=== PATIENT | female | born 2000 | race Caucasian/White ===

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

== ENCOUNTER → 2020-01-25 13:49 | Outpatient (BNVA) | payer MEDICAID, SELFPAY | PROVIDERS: Family Provider Pediatrics Adolescent Medicine; PCP Pediatrics Adolescent Medicine; Visit Provider Obstetrics & Gynecology | DX: Z87.59 Personal history of other complications of pregnancy, childbirth and the puerperium (principal) | CPT/HCPCS: 84702 ==

== ENCOUNTER → 2020-02-08 08:55 | Outpatient (BNVA) | payer MEDICAID, SELFPAY | PROVIDERS: Family Provider Pediatrics Adolescent Medicine; PCP Pediatrics Adolescent Medicine; Visit Provider Obstetrics & Gynecology | DX: E34.9 Endocrine disorder, unspecified (principal); Z87.59 Personal history of other complications of pregnancy, childbirth and the puerperium | CPT/HCPCS: 84702 ==

== ENCOUNTER → 2020-03-28 16:10 | Outpatient (BNVA) | payer MEDICAID, SELFPAY | PROVIDERS: Family Provider Pediatrics Adolescent Medicine; PCP Pediatrics Adolescent Medicine; Visit Provider Obstetrics & Gynecology | DX: Z87.59 Personal history of other complications of pregnancy, childbirth and the puerperium (principal) | CPT/HCPCS: 84702 ==

== ENCOUNTER → 2020-05-10 16:50 | Outpatient (BNVA) | payer MEDICAID, SELFPAY | PROVIDERS: Family Provider Pediatrics Adolescent Medicine; PCP Pediatrics Adolescent Medicine; Visit Provider Obstetrics & Gynecology | DX: O02.0 Blighted ovum and nonhydatidiform mole (principal) | CPT/HCPCS: 84702 ==

== ENCOUNTER 2024-04-18 07:30 | Inpatient (IN) | payer OTHER, SELFPAY ==
[2024-04-18] VITALS (63 sets, daily range): BP systolic 83–136; BP diastolic 47–84; PULSE 64–110; RESP 15–16; TEMP 35.8–36.9; O2SAT 98–99; BMI 30.5
[2024-04-18 07:35] LABS: Nitrazine Paper, PH Positive
[2024-04-18 07:43] LABS: Basophils % 0.3 %; Eosinophils # 0.2 10^3/uL (0.0-0.8); Eosinophils % 1.7 %; Hematocrit 34.5 % (36-47); Mean Corpuscular HGB Conc 32.5 g/dL (30-55); Mean Corpuscular Hemoglobin 29.2 pg (27-33); Mean Corpuscular Volume 90.1 fl (85-98); Monocytes # 0.9 10^3/uL (0.2-0.9); Monocytes % 10.6 %; Neutrophils # 5.76 10^3/uL (1.8-7.7); Neutrophils % 64.8 %; Nucleated Red Blood Cells % 0 %; Platelet Count 213 10^3/cmm (157-399); Red Blood Count 3.83 10^6/uL (3.85-5.65); Red Cell Distribution Width 13.2 % (12.1-15.1); White Blood Count 8.88 10^3/uL (3.29-11.43)
[2024-04-18] MEDS: miSOPROStol 100 mcg tablet 25 MCG SUBLINGUAL (07:52)
[2024-04-18] MEDS: fentaNYL 50 mcg/mL INJ 2mL IVP (12:00)
[2024-04-18] MEDS: sodium chloride 0.9% 1,000 ML 999 ML IV (12:11)
--- NOTE | 2024-04-18 12:16 | PM.OPHPUD ---
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 She came to the OB department and found that she did indeed have rupture membranes. She had pooling in her vaginal vault. And continuous trickle. Her has been unremarkable. She has had consistent care. Her blood type is a positive. Her antibody screen is negative. She passed her glucose screen. She is rubella immune. She is GBS negative. The remainder of her infectious disease profile is within normal limits. Related Problem List Diagnoses (1) 39 weeks gestation of : I anticipate routine labor augmentation and spontaneous vaginal delivery. (2) Spontaneous rupture of membranes: A&P Assessment and plan (1) 39 weeks gestation of : Status: Acute (2) Spontaneous rupture of membranes: Status: Acute PDMP PDMP Reviewed: Not Reviewed
[2024-04-18] MEDS: dextrose 5%-lactated ringers 1,000 ML 125 ML IV ×2 (13:15→21:15)
[2024-04-18] MEDS: ROPivacaine syringe 100 MG/50 ML SYRINGE 10 MG EPIDURAL ×3 (13:42→22:53)
--- NOTE | 2024-04-18 13:46 | ANES.PAUD2 ---
Pre-Anesthetic Update Pre-Anesthetic Assessment: Date of Surgery/Procedure: 04/18/24 Preop Diagnosis: intruterine Proposed Procedure: labor epidural Any changes to Pre-Anesthetic Assessment?: No Labs Last 48hrs: Short CBC 04/18/24 Range/Units 07:20 WBC 8.88 (3.29-11.43) 10^ 3/uL Hgb 11.20 L (11.27-16.99) g/ dL Hct 34.5 L (36-47) % MCV 90.1 (85-98) fl Plt Count 213 (157-399) 10^3/c mm Neut % (Auto) 64.8 % Neut # (Auto) 5.76 (1.8-7.7) 10^3/u L Blood Bank 04/18/24 07:20 Blood Type A Positive Rho(D) Type Rh positive Antibody Screen Negative Vitals: Temperature 97.2 F L 04/18/24 11:09 Pulse Rate 85 04/18/24 13:42 Respiratory Rate 15 04/18/24 12:00 Blood Pressure 109/60 04/18/24 13:42 Pulse Oximetry 99 04/18/24 13:37 Exam: Pre-Anes Outpt Exam: alert, oriented x 3 and clear to auscultation bilaterally Cardiac Studies: No Data to Display Anesthesia Procedures Epidural: Time Out Performed: Yes Consents Signed: Procedure Consent Consent: requested by attending/covering physician, from patient, risks and benefits reviewed and patient agrees to proceed Lumbar Level: L4-L5 Epidural position: sitting Epidural procedure: sterile prep of area, 1% lidocaine to numb the area, 18 g needle, negative for paresthesia passed, neg for paresthesia, test dose given, 1.5% xylocaine 1:200k epi, 0.2% Ropivacaine bolus ml (5), placed PCEA, no systemic response, sterile dressing applied, L.U.D. no apparent complications and 0.2% Ropiavacaine @ mls/hr (10) Additional Comments: CAMRYN 5cm, catheter easily threaded to 5cm in the space, vs monitored throughout and remained stable. 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
[2024-04-18] MEDS: oxytocin 30 UNIT/500 ML BAG IV (23:10)
[2024-04-19] VITALS (16 sets, daily range): BP systolic 98–118; BP diastolic 57–78; PULSE 71–107; RESP 14–17; TEMP 36.4–36.8; O2SAT 97–98
--- NOTE | 2024-04-19 00:33 | PM.DELIVERY ---
Delivery Note: Date of delivery: April 19, 2024 Pre-delivery diagnoses: 3-year-old 2 para 0-0-1-0 at 39 weeks estimated gestational age presenting with spontaneous rupture membranes Post-delivery diagnoses: Status post vacuum-assisted vaginal delivery Procedure: Vacuum-assisted vaginal delivery Delivering Physician: Feliciano Virk Estimated blood loss (mL): 100 Pre-Delivery Course: The patient presented to the OB department with spontaneous rupture membranes this morning at around 6:00. She is given Cytotec x 2. An epidural was placed. Her labor was also augmented with Pitocin just prior to delivery. She progressed to complete without difficulty. She pushed for over an hour with minimal change in position of the baby. As result she was allowed to labor down. She then pushed again for 45 minutes and the baby made minimal position change during that time. Delivery: DELIVERY: After the baby had made minimal position change despite 45 minutes of pushing, I discussed with the parents the option of using a vacuum. We discussed the risks including the risk of a subgaleal bleed. The vacuum was then placed and used for 2 separate contractions. There was 1 pop-off. She delivered a female with a weight of 6 pounds 14 ounces with Apgars of 8, 9. The baby was delivered from the OP position.The baby was then completely delivered and placed on the mother's abdomen. The cord was then clamped and cut. A nuchal cord was noted which was easily reduced prior to delivery of the shoulder. There was no meconium. The placenta and 3 vessel cord were delivered intact shortly thereafter. The perineum and vaginal vault were carefully examined. A second-degree posterior midline tear was noted that extended up onto the right vaginal wall. It was repaired with a 3-0 Vicryl in the usual fashion. Both the mother and the baby were in stable condition. History History History 2 Term 0 0 Miscarriages/Ectopic 1 Living Children 0 A&P Assessment and plan (1) Vacuum-assisted vaginal delivery: I anticipate routine care. (2) 39 weeks gestation of : PDMP PDMP Reviewed: Not Reviewed Coding Level of Care Code Acute Code for Chg Fwd Diagnoses Vacuum-assisted vaginal delivery Z37.9 39 weeks gestation of Z3A.39
[2024-04-19] MEDS: docusate sodium 100 mg Capsule PO ×2 (08:00→20:25)
[2024-04-19] MEDS: PRENATAL VIT NO.130/IRON/FOLIC 1 EACH TABLET PO (08:00)
[2024-04-19] MEDS: ibuprofen 800 mg tablet PO ×3 (08:00→20:24)
[2024-04-19] MEDS: HYDROcodone-acetaminophen 5-325 mg Tablet PO (13:04)
[2024-04-19 13:22] LABS: Hematocrit 32.5 % (36-47); Mean Corpuscular HGB Conc 32.3 g/dL (30-55); Mean Corpuscular Hemoglobin 29.5 pg (27-33); Mean Corpuscular Volume 91.3 fl (85-98); Mean Platelet Volume 9.1 fL (7.4-10.4); Platelet Count 202 10^3/cmm (157-399); Red Blood Count 3.56 10^6/uL (3.85-5.65); Red Cell Distribution Width 13.2 % (12.1-15.1); White Blood Count 14.73 10^3/uL (3.29-11.43)
--- NOTE | 2024-04-19 16:54 | ANE.PACU2 ---
Inpatient post-anesthesia follow up: Airway intact: Yes Vital signs: Temperature 98.4 F Pulse Rate 99 Respiratory Rate 18 Blood Pressure 112/78 Pulse Oximetry 99 Oxygen Delivery Me thod Room Air Oxygen Flow Rate Fraction of Inspir ed Oxygen Hydration adequate: Yes Nausea and vomiting: No Pain level: 2 Mental status: Baseline Epidural Start/End: Epidural Start Date: 04/18/24 Epidural Start Time: 13:16 Epidural End Date: 04/19/24 Epidural End Time: 00:47
[2024-04-20 04:17] VITALS: BP 101/65; PULSE 73; RESP 16; TEMP 36.6; TEMP 36.7; O2SAT 99
--- OUTSIDE RECORDS SUMMARY | 2024-04-20 07:34 | XMS_ITS | Data Portability ---
Author Organization [place] [facility]i Bailon [facility] Address [address] [address] Assessment No assessment recorded. Plan of Treatment Reminders Order Date Submit Date Provider Last Modified By Organization Details Last Modified Time Details Appointments RETURN OB 2024 09:30A M Feliciano Virk MD Not available Not available Not available Lab streptoco ccus group B, culture, unspecifi ed specimen 2024 [address] [facility], [address] [facility] , [address], [place], [address], 03/30/2024 12:41:22 Referral None recorded. Procedures None recorded. Surgeries None recorded. Imaging None recorded. Medication Orders None recorded. Patient TargetsNo targets recorded. Patient InstructionsNo instructions recorded. Reason for Referral None Reported. Results Created Date Observation Date Name Description Value Unit Range Abnormal Flag Note LastModifiedBy Organization Detail LastModifiedTime 03/26/19 25 03/30/2024 STREP TOCOC CUS, GROUP B CULTU RE streptococcu s, group B culture SEE NOTE STREP TOCOC CUS, GROUP B CULTU RE Micro Numbe r: [id number] Test Statu s: Final Speci men Sourc e: Vagin al/an orect al Speci men Quali ty: Adequ ate Resul t: No group B Strep tococ cus isola cherelle Note per CDC guide lines optim al recov yobany is achie cristine by swabb ing both the lower vagin a and rectu m (thro ugh the anal sphin cter) . Not Available [facility] [address], [place], [address], 03/30/2024 12:41:22 Result Notes None recorded. Problems Name Problem SNOMED Code Status Onset Date Resolution Date Notes Provider Name and Address Organization Details Recorded Time 75068700 Active 2023 KATIE FROST [facility]CR[facility]anda 4 10:20:43 Normal in multigravid a 3938401768248 06 Active 2023 TEN TIMMONS [facility], L.L.CR[facility]anda 4 17:15:25 Normal in multigravid a 2707260552539 06 Active 2023 TEN TIMMONS [facility], L.L.CR[facility]anda 4 17:15:25 Problem Notes None recorded. Procedures Surgical History Date Name Laterality Status Provider Name and Address Organization Details Recorded Time Dilation and Curettage completed [facility] 09/26/2023 10:18:08 tonsilectomy/a denoids completed [facility], L.L.CR[facility]anda 09/26/2023 10:18:19 Imaging Results None recorded. Procedure Notes None recorded. Medical Equipment None Reported. Allergies No known drug allergies Medications Name Sig Start Date Stop Date Status Note LastModified by Organization Details LastModified Time Vitamin 27 mg iron-0.8 mg tablet Take 1 tablet every day by oral route. active Not Available Not Available No t Available Gummies 2024 completed Not Available Not Available Not Available Vitals Date Recorded Body height Body mass index (BMI) Body weight Respiratory rate Heart rate Oxygen saturation Oxygen saturation in Arterial blood by Pulse oximetry Body temperature Systolic blood pressure Diastolic blood pressure Provider Name and Address Organization Details Last Updated DateTime 5 162.56 cm 29.9 kg/m2 31829.1 7 g 18 /min 72 /min 97 % 97 % 97.6 [degF] 116 mm[Hg] 74 mm[Hg] TEN TIMMONS [facility], L.L.CR[facility]anda 5 15:05:28 Date Recorded Body height Body mass index (BMI) Body weight Respiratory rate Oxygen saturation Oxygen saturation in Arterial blood by Pulse oximetry Heart rate Body temperature Systolic blood pressure Diastolic blood pressure Provider Name and Address Organization Details Last Updated DateTime 5 162.56 cm 29.7 kg/m2 52924.8 8 g 16 /min 98 % 98 % 84 /min 97.9 [degF] 128 mm[Hg] 78 mm[Hg] TEN IAIN [facility], LRolandaLMat 5 14:00:25 Date Recorded Body height Body mass index (BMI) Body weight Oxygen saturation Oxygen saturation in Arterial blood by Pulse oximetry Heart rate Respiratory rate Body temperature Systolic blood pressure Diastolic blood pressure Provider Name and Address Organization Details Last Updated DateTime 5 162.56 cm 30.3 kg/m2 26849.6 6 g 99 % 99 % 64 /min 18 /min 97.7 [degF] 100 mm[Hg] 64 mm[Hg] KATIE TAPIA [facility], LRolandaLMat 5 14:53:23 Date Recorded Body height Body mass index (BMI) Body weight Oxygen saturation Oxygen saturation in Arterial blood by Pulse oximetry Heart rate Respiratory rate Body temperature Systolic blood pressure Diastolic blood pressure Provider Name and Address Organization Details Last Updated DateTime 5 162.56 cm 30.7 kg/m2 19347.0 3 g 98 % 98 % 72 /min 18 /min 98.1 [degF] 120 mm[Hg] 68 mm[Hg] KATIE TAPIA [facility], LRolandaLMat 5 13:44:46 Date Recorded Body height Body mass index (BMI) Body weight Oxygen saturation Oxygen saturation in Arterial blood by Pulse oximetry Heart rate Respiratory rate Body temperature Systolic blood pressure Diastolic blood pressure Provider Name and Address Organization Details Last Updated DateTime 5 162.56 cm 30.7 kg/m2 02941.0 3423 g 99 % 99 % 75 /min 18 /min 98.4 [degF] 120 mm[Hg] 78 mm[Hg] KATIE SOUSAMDZander [facility], Jun 5 15:52:21 Social History Question Answer Notes LastModified by Organizat ion Details LastModified Time Tobacco Smoking Status Never Smoker KATIE finch [facility], Jun 09/26/2023 10:17:34 What Is Your Level Of Alcohol Consumption? None Information not available 09/26/2023 Are You Currently Employed? Yes [employer] Information not available 09/26/2023 What Is Your Relationship Status? Information not available 09/26/2023 Are You Sexually Active? Yes Information not available 09/26/2023 Do You Use Any Illicit Or Recreational Drugs? No Information not available 09/26/2023 Sex: Unknown Functional Status Question Answer Note LastModified by Organization D etails LastModified Time Are you able to care for yourself? Yes Information n ot available 09/26/2023 Mental Status None recorded. Family History Relationship Description Onset Age of this Age Resolved Age Notes LastModified by Organization Details LastModified Time Father No current problems or disability [email or web address] Not available 0 09/26/2023 10:17:20 Mother No current problems or disability [email or web address] Not available 0 09/26/2023 10:17:20 Medical History No medical history recorded. Gynecological HistoryNo gynecological history recorded. Obstetrics History GPAL:G 2 P 0 0 0 0 Type Value Living 0 Total 2 Immunizations Vaccine Type Date Status Note Provider Nam e and Address Organization Details Recorded Time IPV 2 completed [facility] 10:15:12 IPV 2 completed [facility] 09/26/2023 10:15:12 IPV 1 completed [facility]/26/2023 10:15:12 MMR 1 completed TREBA NEUSCHWANDER null, [facility] 09/26/2023 10:15:12 MMR 1 completed TREBA NEUSCHWANDER null, [facility] 09/26/2023 10:15:12 Tdap 1 completed TREBA NEUANNETTEWANDER null, [facility] 09/26/2023 10:15:12 Pneumococcal conjugate PCV 13 2 completed TREBA NEUSCHWANDER null, [facility] 09/26/2023 10:15:12 varicella 1 completed TREBA NEUSCHWANDER null, [facility] 09/26/2023 10:15:12 varicella 1 completed [facility] 09/26/2023 10:15:12 Influenza, split virus, trivalent, preservative 2 completed [facility]WAND[facility] 09/26/2023 10:15:12 Influenza, split virus, trivalent, preservative 2 completed TREBA NEUSCHWANDER null, [facility] 09/26/2023 10:15:12 Hep B, adolescent or pediatric 2 completed TREBA NEUSCHWANDER null, [facility] 09/26/2023 10:15:12 Hep B, adolescent or pediatric 2 completed TREBA NEUSCHWANDER null, [facility] 09/26/2023 10:15:12 Hep B, adolescent or pediatric 1 completed TREBA NEUSCHWANDER null, [facility] 09/26/2023 10:15:12 Hep A, adult 1 completed TREBA NEUSCHWANDER null, [facility] 09/26/2023 10:15:12 Hib (PRP-T) 2 completed TREBA NEUSCHWANDER null, [facility] 09/26/2023 10:15:12 Hib (PRP-T) 2 completed TREBA NEUSCHWANDER null, [facility] 09/26/2023 10:15:12 DTaP 2 completed TREBA NEUSCHWANDER null, [facility] 09/26/2023 10:15:12 DTaP 2 completed TREBA NEUSCHWANDER null, [facility] 09/26/2023 10:15:12 Past Encounters Encounter ID Performer Location Encounter Start Date Encounter Closed Date Diagnosis/Indication Diagnosis SNOMED-CT Code Diagnosis ICD10 Code Diagnosis Note [id number] Feliciano Vikr MD [facility] ([facility]) [address] [place], [place] [phone] 09/26/2023 10:09:44 09/26/2023 11:28:26 Multigravida 754563137 Z34.81 Past pregn kevin history of miscarriage 309528885 Z87.59 [id number] EPHRAIM GELLER [facility] ([facility]) [address] [place] [phone] 5 10/10/2023 11:29:09 10/10/2023 17:42:13 [id number] Feliciano Virk MD [facility] ([facility]) [address] [place], [place] [id number] 10/24/2023 09:29:05 10/24/2023 10:40:57 Normal in multigravida 4487579538 17496 Z34.81 Z34.82 Vaginal discharge 090415 006 N89.8 [id number] Feliciano Virk MD [facility] ([facility]) [address] [place] [id number] 11/21/2023 14:49:36 11/21/2023 16:10:00 Normal in multigravida 3027893974 93144 Z34.81 Z34.82 Gestation period, 18 weeks 62466567 Z3A.18 [id number] [facility] ([facility]) [address] [place] [phone] 12/05/2023 13:55:41 12/06/2023 16:38:59 [id number] Feliciano Virk MD [facility] ([facility]) [address] [place] [id number] 5 12/18/2023 15:24:58 12/18/2023 16:34:21 Normal in multigravida 2131301113 81791 Z34.81 Z34.82 Gestation period, 22 weeks 34034466 Z3A.22 [id number] Feliciano Virk MD [facility] ([facility]) [address] [place] [id number] 5 01/16/2024 13:46:01 01/16/2024 14:48:21 Normal in multigravida 9040801744 31680 Z34.81 Z34.82 Gestation period, 26 weeks 19493504 Z3A.[id number] [facility] ([facility]) [address] [place] [id number] 02/13/2024 12:46:01 02/14/2024 11:40:58 [id number] Feliciano Virk MD [facility] ([facility]) [address] [place] [id number] 5 02/13/2024 13:53:48 02/13/2024 14:47:51 Normal in multigravida 0313063691 70279 Z34.83 Gestation period, 30 weeks 29010657 Z3A.30 [id number] Feliciano Virk MD [facility] ([facility]) [address] [place] [id number] 02/27/2024 13:49:16 02/27/2024 15:37:47 Normal in multigravida 6989495638 49850 Z34.83 Gestation period, 32 weeks 6688116 Z3A.32 wants to talk with about TDaP and RSV [id number] Feliciano Virk MD [facility] ([facility]) [address] [place], [place] [phone] 03/12/2024 14:19:43 03/12/2024 17:38:40 Normal in multigravida 9200502184 50756 Z34.83 Gestation period, 34 weeks 12994392 Z3A.34 [id number] Feliciano Virk MD [facility] ([facility]) [address] [place] [address] 5 03/26/2024 13:41:32 03/27/2024 10:16:38 Normal in multigravida 6073902738 23319 Z34.83 Gestation period, 36 weeks 42411019 Z3A.36 [id number] Feliciano Virk MD [facility] ([facility]) [address] [place], [place] [id number] 04/02/2024 14:15:03 04/10/2024 16:57:20 Normal in multigravida 5631340959 58504 Z34.83 Gestation period, 37 weeks 94447122 Z3A.37 [id number] Feliciano Virk MD [facility] ([facility]) [address] [place], [place] [phone] 04/09/2024 13:32:37 04/09/2024 14:22:08 Normal in multigravida 4644565687 67808 Z34.83 Gestation period, 38 weeks 38764059 Z3A.38 [id number] Feliciano Virk MD [facility] ([facility]) [address] [place], [place] [phone] 04/15/2024 15:22:06 04/15/2024 16:53:01 Normal in multigravida 1235400914 01112 Z34.83 Gestation period, 39 weeks 99861995 Z3A.39 Health Concerns Section Related Observation LastModified by Organization Detai ls LastModified Time None Recorded Concern Status LastModified by Organization Details LastModified Time None Recorded Advance Directives Directive None Recorded Payers Encounter Date Sequence Insurance Name Policy Number Policy Henning Covered Member ID Henning Member ID Guarantor Name 03/12/2024 1 [place] [id number] Shantel O Keyana [id number] Shantel Keyana 03/26/2024 1 [place] [id number] Shantel O Keyana [id number] Shantel Keyana 04/02/2024 1 [place] [id number] Shantel O Keyana [id number] Shantel [place] 04/09/2024 1 [place] [id number] Shantel O Keyana [id number] Shantel [place] 04/15/2024 1 [place] [id number] Shantel O Keyana [id number] Shantel Keyana Notes Date Note Type Note Provider Name and Address Organization Details Recorded Time 03/12/2024 text/html ob routineRep orted bypatient.Associated Symptoms:no abdominal pain; no cramping; normal movement; no bleeding; no vaginal discharge; no vaginal/vulvar itching or irritation; no dysuria; no frequency; no hematuria; no fever; no nausea; no emesis; no constipation; no diarrhea/loose stool; no visual changes; no dizziness; no breathlessness;contra ctions(dilshad crain);edema(feet with prolonged standing);headacheNot es:heartburn, vaginal pressure, right hip pain intermittentpt denies any alcohol, drug or tobacco use Feliciano Virk MD [address] [place] [address], [phone], [facility], L[facility]CR[facility]anda 03/12/2024 15:22:48 03/26/2024 text/html ob routineRep orted bypatient.Associated Symptoms:no abdominal pain; normal movement; no bleeding; no vaginal/vulvar itching or irritation; no dysuria; no hematuria; no fever; no emesis; no constipation; no diarrhea/loose stool; no visual changes; no headache; no breathlessness;crampi ng;contractions(braxt on crain);vaginal discharge;frequency;n ausea;edema(feet with prolonged standing);dizzinessNo era:heartburn, vaginal pressure, pelvic pain and pressure, right hip pain intermittentpt denies any alcohol, drug or tobacco use Feliciano Virk MD [address] [place] [address], [phone], [facility] 03/30/2024 06:44:23 04/02/2024 text/html ob routineRep orted bypatient.Associated Symptoms:no abdominal pain; normal movement; no bleeding; no vaginal/vulvar itching or irritation; no dysuria; no frequency; no urgency; no hematuria; no fever; no emesis; no constipation; no diarrhea/loose stool; no edema; no visual changes; no headache; no breathlessness;crampi ng;contractions(braxt on crain);vaginal discharge;nausea;dizz inessNotes:heartburn, vaginal pressure, pelvic pain and pressure, right hip pain intermittent, back painpt denies any alcohol, drug or tobacco use Feliciano Virk MD [address] [place] [address], [phone], [facility] 04/10/2024 12:24:42 04/09/2024 text/html ob routineRep orted bypatient.Associated Symptoms:no abdominal pain; normal movement; no bleeding; no vaginal/vulvar itching or irritation; no dysuria; no frequency; no urgency; no hematuria; no fever; no emesis; no constipation; no diarrhea/loose stool; no edema; no visual changes; no headache; no breathlessness;crampi ng;contractions(braxt on crain);vaginal discharge;nausea;dizz inessNotes:heartburn, vaginal pressure, pelvic pain and pressure, right hip pain intermittent, back painpt denies any alcohol, drug or tobacco use Feliciano Virk MD [address] [place] [address], [phone], [facility], Jun 04/09/2024 14:04:11 04/15/2024 text/html jr ob routineRep orted bypatient.Associated Symptoms:no abdominal pain; no cramping; normal movement; no bleeding; no vaginal discharge; no vaginal/vulvar itching or irritation; no dysuria; no frequency; no urgency; no hematuria; no fever; no nausea; no emesis; no constipation; no edema; no visual changes; no headache; no breathlessness;contra ctions(dilshad crain);diarrhea/loose stool;dizzinessNotes: heartburn, vaginal pressure, pelvic pain and pressure, right hip pain intermittent, back painpt denies any alcohol, drug or tobacco use Feliciano Virk MD [address] [place] [address], [phone], [facility], Jun 04/15/2024 16:09:59 OBGyn Episode Ob Episode Information Episode Created Date Number of Fetuses Patient Bloodtype Patient rh Status Prepregnancy Weight lbs Domestic Partner Domestic Partner Phone Father Name Thermostat Repairer Status 09/26/19 24 1 A Positive Pipe OPEN Fetus Data First Name Last Name Admitted to NICU Weight (g) Sex Living Outcome Pediatric Complications Fetus ID Race Codes Race Delivery Type 5104 Problems Problem Notes Problem Name Start Date End Date Resolution Snomed Code Not e Normal in multigravida 10/23/2023 [id number] Dionna Calculation Initial Dionna Date Initial Exam Date Initial Exam Provider Initial Ultrasound Date Last Menstrual Period Date Ultra Sound Weeks Gestation 04/22/2024 09/26/2023 07/17/2023 0 Eighteen To Twenty Week Dionna Update Ultra Sound Date Fundal Height At Umbil Quickening Date Ultra Sound Latest Weeks Gestation Final Dionna Confirmed By Final Dionna Confirmed Date Final Dionna Date Ultra Sound Latest Days Gestation 0 04/22/19 25 0 Pre- Flowsheet Flowsheet Date 09/26/2023 Kam Score Blood Edema Fundus Height Fundus Units Glucose Ketones Leukocytes Nitrite Labor Signs Protein Cervic Dilation Cervic Effacement Cervic Station Type Weight in lbs Pre/Post Dialysis Refused Weight 149.615726798738 BP Diastolic BP Location Tested BP Systolic BP Type 64 120 sitting Fetus Heart Rate Present A 168 Present Fetus Movement Comments OBI- nausea, cramping, migra kostas Flowsheet Date 10/10/2023 Kam Score Blood Edema Fundus Height Fundus Units Glucose Ketones Leukocytes Nitrite Labor Signs Protein Cervic Dilation Cervic Effacement Cervic Station Type Weight in lbs Pre/Post Dialysis Refused BP Diastolic BP Location Tested BP Systolic BP Type Fetus Heart Rate Present Fetus Movement Comments Flowsheet Date 10/24/2023 Kam Score Blood Edema Fundus Height Fundus Units Glucose Ketones Leukocytes Nitrite Labor Signs Protein Cervic Dilation Cervic Effacement Cervic Station Type Weight in lbs Pre/Post Dialysis Refused 150.892469685264 BP Diastolic BP Location Tested BP Systolic BP Type 64 110 sitting Fetus Heart Rate Present A 150 Present Fetus Movement Comments NOB, nausea/vomiting, headac he, cramping Flowsheet Date 11/21/2023 Kam Score Blood Edema Fundus Height Fundus Units Glucose Ketones Leukocytes Nitrite Labor Signs Protein Cervic Dilation Cervic Effacement Cervic Station neg none none Negative neg Type Weight in lbs Pre/Post Dialysis Refused 153.933408944118 BP Diastolic BP Location Tested BP Systolic BP Type 60 100 Fetus Heart Rate Present A 140 Present Fetus Movement Comments Dizziness, mild cramping Flowsheet Date 12/05/2023 Kam Score Blood Edema Fundus Height Fundus Units Glucose Ketones Leukocytes Nitrite Labor Signs Protein Cervic Dilation Cervic Effacement Cervic Station Type Weight in lbs Pre/Post Dialysis Refused BP Diastolic BP Location Tested BP Systolic BP Type Fetus Heart Rate Present Fetus Movement Comments Flowsheet Date 12/06/2023 Kam Score Blood Edema Fundus Height Fundus Units Glucose Ketones Leukocytes Nitrite Labor Signs Protein Cervic Dilation Cervic Effacement Cervic Station Type Weight in lbs Pre/Post Dialysis Refused BP Diastolic BP Location Tested BP Systolic BP Type Fetus Heart Rate Present Fetus Movement Comments u/s on 12/05/23, DIONNA 04/26/24, EGA 19.4, FHR 136, Breech presentation, Placenta is anterior, anatomic screening survey normal. Flowsheet Date 12/18/2023 Kam Score Blood Edema Fundus Height Fundus Units Glucose Ketones Leukocytes Nitrite Labor Signs Protein Cervic Dilation Cervic Effacement Cervic Station 22 cm none none Negative trace Type Weight in lbs Pre/Post Dialysis Refused 158.065295314278 BP Diastolic BP Location Tested BP Systolic BP Type 60 100 sitting Fetus Heart Rate Present A 156 Present Fetus Movement A Yes Comments cramping, constipation, dizz iness, rash under breast and armpits Flowsheet Date 01/16/2024 Kam Score Blood Edema Fundus Height Fundus Units Glucose Ketones Leukocytes Nitrite Labor Signs Protein Cervic Dilation Cervic Effacement Cervic Station 27 cm none neg Type Weight in lbs Pre/Post Dialysis Refused 164.42700574787 BP Diastolic BP Location Tested BP Systolic BP Type 76 122 Fetus Heart Rate Present A 148 Present Fetus Movement A Yes Comments headache, pelvic pressure in termittent, rash is improved, mild swelling feet with prolonged standing Flowsheet Date 02/13/2024 Kam Score Blood Edema Fundus Height Fundus Units Glucose Ketones Leukocytes Nitrite Labor Signs Protein Cervic Dilation Cervic Effacement Cervic Station Type Weight in lbs Pre/Post Dialysis Refused BP Diastolic BP Location Tested BP Systolic BP Type Fetus Heart Rate Present Fetus Movement Comments Flowsheet Date 02/13/2024 Kam Score Blood Edema Fundus Height Fundus Units Glucose Ketones Leukocytes Nitrite Labor Signs Protein Cervic Dilation Cervic Effacement Cervic Station 30 cm none trace Negative neg Type Weight in lbs Pre/Post Dialysis Refused 170.215253268093 BP Diastolic BP Location Tested BP Systolic BP Type 60 110 sitting Fetus Heart Rate Present A 136 Present Fetus Movement A Yes Comments abdominal pain, low back ronald n, nausea,edema in feet,headache Flowsheet Date 02/27/2024 Kam Score Blood Edema Fundus Height Fundus Units Glucose Ketones Leukocytes Nitrite Labor Signs Protein Cervic Dilation Cervic Effacement Cervic Station none trace neg Type Weight in lbs Pre/Post Dialysis Refused Weight 169.886253224889 BP Diastolic BP Location Tested BP Systolic BP Type 66 126 Fetus Heart Rate Present A 144 Present Fetus Movement A Yes Comments having calf pain and crampin g with working, heartburn, swelling in feet, abd pain and cramps Flowsheet Date 03/12/2024 Kam Score Blood Edema Fundus Height Fundus Units Glucose Ketones Leukocytes Nitrite Labor Signs Protein Cervic Dilation Cervic Effacement Cervic Station 35 cm none trace [place] Crain neg Type Weight in lbs Pre/Post Dialysis Refused Weight 174.092463678538 BP Diastolic BP Location Tested BP Systolic BP Type 74 116 Fetus Heart Rate Present A 136 Present Fetus Movement A Yes Comments Rt. hip pain, swelling in fe et, ctx, vaginal pressure, heartburn Flowsheet Date 03/26/2024 Kam Score Blood Edema Fundus Height Fundus Units Glucose Ketones Leukocytes Nitrite Labor Signs Protein Cervic Dilation Cervic Effacement Cervic Station 36 cm none trace [place] Crain trace 0cm -4 Type Weight in lbs Pre/Post Dialysis Refused Weight 173.667255774961 BP Diastolic BP Location Tested BP Systolic BP Type 78 L arm 128 Fetus Heart Rate Present A 148 Present Fetus Movement A Yes Comments Group B strep Swab collected todayvaginal pressure, pelvic pain/pressure, back pain, nausea, cramps, swelling feet Flowsheet Date 03/26/2024 Kam Score Blood Edema Fundus Height Fundus Units Glucose Ketones Leukocytes Nitrite Labor Signs Protein Cervic Dilation Cervic Effacement Cervic Station Type Weight in lbs Pre/Post Dialysis Refused BP Diastolic BP Location Tested BP Systolic BP Type Fetus Heart Rate Present Fetus Movement Comments epidural consult order sent, requested date of 04/02/24 Flowsheet Date 03/30/2024 Kam Score Blood Edema Fundus Height Fundus Units Glucose Ketones Leukocytes Nitrite Labor Signs Protein Cervic Dilation Cervic Effacement Cervic Station Type Weight in lbs Pre/Post Dialysis Refused BP Diastolic BP Location Tested BP Systolic BP Type Fetus Heart Rate Present Fetus Movement Comments Group B strep NegativeOB rec ords sent Flowsheet Date 04/02/2024 Kam Score Blood Edema Fundus Height Fundus Units Glucose Ketones Leukocytes Nitrite Labor Signs Protein Cervic Dilation Cervic Effacement Cervic Station 37 cm none none Negative Dilshad Crain neg Type Weight in lbs Pre/Post Dialysis Refused Weight 176.550823918574 BP Diastolic BP Location Tested BP Systolic BP Type 64 100 sitting Fetus Heart Rate Present A 142 Present Fetus Movement A Yes Comments cramping, vaginal discharge/ pressure, nausea, dizziness, pelvic,hip and back pain, heartburn. Flowsheet Date 04/09/2024 Kam Score Blood Edema Fundus Height Fundus Units Glucose Ketones Leukocytes Nitrite Labor Signs Protein Cervic Dilation Cervic Effacement Cervic Station none none Negative Dilshad Crain neg Type Weight in lbs Pre/Post Dialysis Refused Weight 179.245786052541 BP Diastolic BP Location Tested BP Systolic BP Type 68 120 sitting Fetus Heart Rate Present A 140 Present Fetus Movement A Yes Comments cramping, heartburn, nausea, dizziness, vaginal pressure/pain, pelvic pain, low back pain Flowsheet Date 04/15/2024 Kam Score Blood Edema Fundus Height Fundus Units Glucose Ketones Leukocytes Nitrite Labor Signs Protein Cervic Dilation Cervic Effacement Cervic Station none none Negative neg 1cm 50% - 4 Type Weight in lbs Pre/Post Dialysis Refused 179.791236982754 BP Diastolic BP Location Tested BP Systolic BP Type 78 120 sitting Fetus Heart Rate Present A 148 Present Fetus Movement A Yes Comments Vaginal pressure, low back p ain,dizziness,heartburn, right hip pain Menstrual History Last Menstrual Date Menses Monthly On Bcp Conception Prior Menses Frequency Hcg Plus Date Menarche Onset Age 0507/17/2023 Genetic Screening And Infection History Question Response Note Patient's Age Will Be 35 Years Or Older At Estim ated Date of Delivery false Thalassemia (Cambodian, Sierra Leonean, Mediterranean, Or Background): MCV < 80 false Neural Tube Defect (Meningomyelocele, Spina Bifi da, Or Anencephaly) false Congenital Heart Defect false Down Syndrome false Augie-Sachs (eg, Episcopal, Cajun, Haitian-French) f alse Syed Disease false Sickle Cell Disease Or Trait () false Hemophilia Or Other Blood Disorders false Muscular Dystrophy false Cystic Fibrosis false Steele's Chorea false Intellectual Disability/Autism true n ephew If Yes, Was Person Tested For Fragile X? false Other Inherited Genetic Or Chromosomal Disorder false Maternal Metabolic Disorder (eg, Type 1 Diabetes , PKU) false Patient Or Baby's Father Had A Child With Defects Not Listed Above false Recurrent Loss, Or A Stillbirth false Medications (including Suppl ements, Vitamins, Herbs, OTC Drugs), Illicit/Recreational Drugs, Alcohol false If Yes, Agent(s) And Strength/Dosage false Any Other Genetic History false Live With Someone With TB Or Exposed To TB false Patient Or Partner Has History Of Genital Herpes false Rash Or Viral Illness Since Last Menstrual Perio d false History Of STD, Gonorrhea, Chlamydia, HPV, Syphi lis false Other Infection History false History of HIV false History of Hepatitis false Prior GBS-infected child false Hemoglobinopathy Or Carrier false Other Structural Defect false Recent Travel History Outside of Country false Mental Retardation/Autism false Delivery Information Delivery Date Delivery Type Labor Anesthesia Weeks Gestation Incision Type Labor Labor Length Hrs Delivered By Post Complications Tubal Sterilization Discharge Date Comments Discharge Information Feeding Method Contraceptive Method Maternal HG B and HCT Levels
--- OUTSIDE RECORDS SUMMARY | 2024-04-20 07:35 | XMS_ITS | Continuity of Care Document ---
Author Organization JACLYN Leonardo [facility] Jun Alexander, [facility] ([facility]) Address [address] [place] [address] Assessment No assessment recorded. Plan of Treatment Reminders Order Date Submit Date Provider Last Modified By Organization Details Last Modified Time Details Appointments RETURN OB 2024 09:30A M Feliciano Virk MD Not available Not available Not available Lab streptoco ccus group B, culture, unspecifi ed specimen 2024 025 [employer] [facility], [address] [facility] , [address] [address], [place], [address], 03/30/2024 12:41:22 Referral None recorded. Procedures None recorded. Surgeries None recorded. Imaging None recorded. Medication Orders None recorded. Patient TargetsNo targets recorded. Patient InstructionsNo instructions recorded. Reason for Referral None Reported. Results Created Date Observation Date Name Description Value Unit Range Abnormal Flag Note LastModifiedBy Organization Detail LastModifiedTime 12/06/1912/05/2023 US, obste tric, 2nd trime ster No observ ation record ed. [email or web address] [facility] ([facility]) [address] [place], [address], 12/07/2023 07:18:19 12/25/1912/05/2023 US, obste tric, 2nd trime ster No observ ation record ed. [email or web address] [place], [address], 12/26/2023 10:57:48 Result Notes None recorded. Problems Name Problem SNOMED Code Status Onset Date Resolution Date Notes Provider Name and Address Organization Details Recorded Time 55060293 Active [address] [facility], [facility] 4 10:20:43 Normal in multigravid a 6351183028478 06 Active [address] [facility], [facility] 4 17:15:25 Normal in multigravid a 5703981606100 06 Active [address] [facility], [facility] 4 17:15:25 Problem Notes None recorded. Procedures Surgical History Date Name Laterality Status Provider Name and Address Organization Details Recorded Time Dilation and Curettage completed [facility], Jun 09/26/2023 10:18:08 tonsilectomy/a denoids completed [facility], LRolandaLRolandaCRolanda 09/26/2023 10:18:19 Imaging Results None recorded. Procedure [...] Updated DateTime 5 162.56 cm 29.7 kg/m2 46560.8 8 g 16 /min 98 % 98 % 84 /min 97.9 [degF] 128 mm[Hg] 78 mm[Hg] TENELIZABETH PARISY [facility], LRolandaLMat 5 14:00:25 Social History Question Answer Notes LastModified by Organizat ion Details LastModified Time Tobacco Smoking Status Never Smoker [facility] 10:17:34 What Is Your Level Of [...] Recorded Time IPV 2 completed [facility] 10:15:12 IPV 2 completed [facility]23 10:15:12 IPV 1 completed [facility]23 10:15:12 MMR 1 [facility] 10:15:12 MMR 1 completed TREBA NEUSCHWANDER null, [facility] 09/26/2023 10:15:12 Tdap 1 completed TREBA NEUSCHWANDER null, [facility] 09/26/2023 10:15:12 Pneumococcal conjugate PCV 13 2 completed TREBA NEUSCHWANDER null, [facility] 09/26/2023 10:15:12 varicella 1 completed TREBA NEUSCHWANDER null, [facility] 09/26/2023 10:15:12 varicella 1 completed TREBA NEUSCHWANDER null, [facility] 09/26/2023 10:15:12 Influenza, split virus, trivalent, preservative 2 completed TREBA NEUSCHWANDER null, [facility] 09/26/2023 10:15:12 Influenza, split virus, trivalent, preservative 2 completed TREBA NEUSCHWANDER null, [facility] 09/26/2023 10:15:12 Hep B, adolescent or pediatric 2 completed TREBA NEUSCHWANDER null, [facility] 09/26/2023 10:15:12 Hep B, adolescent or pediatric 2 completed TREBA NEUSCHWANDER null, [facility] 09/26/2023 10:15:12 Hep B, adolescent or pediatric 1 completed TREBA NEUSCHWANDER null, [facility] 09/26/2023 10:15:12 Hep A, adult 1 completed TREBA NEUSCHWANDER null, [facility] 09/26/2023 10:15:12 Hib (PRP-T) 2 completed TREBA NEUSCHWANDER null, [facility] 09/26/2023 10:15:12 Hib (PRP-T) 2 completed TREBA NEUSCHWANDER null, [facility] 09/26/2023 10:15:12 DTaP 2 completed TREBA NEUSCHWANDER null, [facility] 09/26/2023 10:15:12 DTaP 2 completed TREBA NEUSCHWANDER null, [facility] 09/26/2023 10:15:12 Past Encounters Encounter ID Performer Location Encounter Start Date Encounter Closed Date Diagnosis/Indication Diagnosis SNOMED-CT Code Diagnosis ICD10 Code Diagnosis Note [id number] Feliciano Virk MD [facility] ([facility]) [address] [place] [phone] 02/27/2024 13:49:16 02/27/2024 15:37:47 Normal in multigravida 5862155321 27454 Z34.83 Gestation period, 32 weeks 1029241 Z3A.32 wants to talk with about TDaP and RSV [id number] Feliciano Virk MD [facility] ([facility]) [address] [place] [phone] 03/12/2024 14:19:43 03/12/2024 17:38:40 Normal in multigravida 6963082302 95916 Z34.83 Gestation period, 34 weeks 74087669 Z3A.34 [id number] Feliciano Virk MD [facility] ([facility]) [address] [place], [place] [address] 03/26/2024 13:41:32 03/27/2024 10:16:38 Normal in multigravida 6221319114 85399 Z34.83 Gestation period, 36 weeks 01993007 Z3A.36 Health Concerns Section Related Observation LastModified by Organization Detai ls LastModified Time None Recorded Concern Status LastModified by Organization Details LastModified Time None Recorded Payers Encounter Date Sequence Insurance Name Policy Number Policy Henning Covered Member ID Henning Member ID Guarantor Name 03/26/2024 1 [place] [id number] Shantel Ridley [id number] 70 Shantel Ridley Notes Date Note Type Note Provider Name and Address Organization Details Recorded Time 03/26/2024 text/html jr ob routineRep orted bypatient.Associated Symptoms:no [...] drug or tobacco use Feliciano Virk MD [address] [place] [address], [phone], [facility] 03/30/2024 06:44:23 OBGyn Episode Ob Episode Information Episode Created Date Number of Fetuses Patient Bloodtype Patient rh Status Prepregnancy Weight lbs Domestic Partner Domestic Partner Phone Father Name Saw Offbearer Status 09/26/19 24 1 A Positive Pipe OPEN Fetus Data First Name Last Name Admitted to NICU Weight (g) Sex Living Outcome Pediatric Complications Fetus ID Race Codes Race Delivery Type 5104 Problems Problem Notes Problem Name Start Date End Date Resolution Snomed Code Not e Normal in multigravida 10/23/2023 [id number] Dionna Calculation Initial Dionna Date Initial Exam [...] Weight in lbs Pre/Post Dialysis Refused Weight 149.207283047094 BP Diastolic BP Location Tested BP Systolic [...] Type Weight in lbs Pre/Post Dialysis Refused 150.560657528892 BP Diastolic BP Location Tested BP Systolic BP Type 64 110 sitting Fetus Heart Rate Present A 150 Present Fetus Movement Comments NOB, nausea/vomiting, headac he, cramping Flowsheet Date 11/21/2023 Kam Score Blood Edema Fundus Height Fundus Units Glucose Ketones Leukocytes Nitrite Labor Signs Protein Cervic Dilation Cervic Effacement Cervic Station neg none none Negative neg Type Weight in lbs Pre/Post Dialysis Refused 153.241296791522 BP Diastolic BP Location Tested BP Systolic [...] Type Weight in lbs Pre/Post Dialysis Refused 158.230604875655 BP Diastolic BP Location Tested BP Systolic [...] Type Weight in lbs Pre/Post Dialysis Refused 164.98019917506 BP Diastolic BP Location Tested BP Systolic [...] Type Weight in lbs Pre/Post Dialysis Refused 170.706558131531 BP Diastolic BP Location Tested BP Systolic [...] Weight in lbs Pre/Post Dialysis Refused Weight 169.378740519217 BP Diastolic BP Location Tested BP Systolic [...] Effacement Cervic Station 35 cm none trace Dilshad Crain neg Type Weight in lbs Pre/Post Dialysis Refused Weight 174.759867335115 BP Diastolic BP Location Tested BP Systolic BP Type 74 116 Fetus Heart Rate Present A 136 Present Fetus Movement A Yes Comments Rt. hip pain, swelling in fe et, ctx, vaginal pressure, heartburn Flowsheet Date 03/26/2024 Kam Score Blood Edema Fundus Height Fundus Units Glucose Ketones Leukocytes Nitrite Labor Signs Protein Cervic Dilation Cervic Effacement Cervic Station 36 cm none trace Bondurant Crain trace 0cm -4 Type Weight in lbs Pre/Post Dialysis Refused Weight 173.121802741996 BP Diastolic BP Location Tested BP Systolic [...] Cervic Station 37 cm none none Negative Bondurant Crain neg Type Weight in lbs Pre/Post Dialysis Refused Weight 176.411293524264 BP Diastolic BP Location Tested BP Systolic [...] Weight in lbs Pre/Post Dialysis Refused Weight 179.515951435351 BP Diastolic BP Location Tested BP Systolic [...] Type Weight in lbs Pre/Post Dialysis Refused 179.002370446276 BP Diastolic BP Location Tested BP Systolic [...] Estim ated Date of Delivery false Thalassemia (Mongolian, Hong Konger, Mediterranean, Or Background): MCV < 80 false Neural Tube Defect (Meningomyelocele, Spina Bifi da, Or Anencephaly) false Congenital Heart Defect false Down Syndrome false Augie-Sachs (eg, Holiness, Cajun, Turkish-Pinola) f alse Syed Disease false Sickle Cell Disease Or Trait () false Hemophilia Or Other Blood Disorders false Muscular Dystrophy false Cystic Fibrosis false Madisyn's Chorea false Intellectual Disability/Autism true n ephew [...]
--- OUTSIDE RECORDS SUMMARY | 2024-04-20 07:35 | XMS_ITS | Continuity of Care Document ---
Author Organization [facility] eBnjamin, Jun, [facility] ([facility]) Address [address] [place] [address] Assessment No assessment recorded. Plan of Treatment Reminders Order Date Submit Date Provider Last Modified By Organization Details Last Modified Time Details Appointments RETURN OB 2024 09:30A M Feliciano Virk MD Not available Not available Not available Lab None recorded . Referral None recorded . Procedures None recorded . Surgeries None recorded . Imaging None recorded . Medication Orders None recorded . Patient TargetsNo targets recorded. Patient InstructionsNo instructions recorded. Reason for Referral None Reported. Results Created Date Observation Date Name Description Value Unit Range Abnormal Flag Note LastModifiedBy Organization Detail LastModifiedTime 12/06/19 24 12/05/2023 US, obste tric, 2nd trime ster No observ ation record ed. [email or web address] [facility] ([facility]) [address] [place], [address], 12/07/2023 07:18:19 12/25/19 24 12/05/2023 US, obste tric, 2nd trime ster No observ ation record [facility]. [email or web address] [address] [place], [address], 12/26/2023 10:57:48 Result Notes None recorded. Problems Name Problem SNOMED Code Status Onset Date Resolution Date Notes Provider Name and Address Organization Details Recorded Time 14089499 Active [facility]23 [facility] Normal in multigravid a 0504923786923 06 Active 2023 TENELIZABETH TIMMONS [facility], L.L.CRolanda 4 17:15:25 Normal in multigravid a 5678986373527 06 Active 2023 TENELIZABETH TIMMONS josette [facility], L.L.CRolanda 4 17:15:25 Problem Notes None recorded. Procedures Surgical History Date Name Laterality Status Provider Name and Address Organization Details Recorded Time Dilation and Curettage [facility] 09/26/2023 10:18:08 tonsilectomy/a denoids [facility] LRolandaLRolandaCRolanda 09/26/2023 10:18:19 Imaging Results None recorded. [...] Updated DateTime 5 162.56 cm 30.7 kg/m2 97413.0 3 g 98 % 98 % 72 /min 18 /min 98.1 [degF] 120 mm[Hg] 68 mm[Hg] KATIE TAPIA [facility], L.L.CRolanda 5 13:44:46 Social History Question Answer Notes LastModified by Organizat ion Details LastModified Time Tobacco Smoking Status Never Smoker KATIE BRAUN [facility], LRolandaLRolandaCRolanda 09/26/2023 10:17:34 What Is Your Level Of [...] Recorded Time IPV 2 completed [facility] 09[facility]26/[facility]23 10:15:12 IPV 2 completed [facility] 09/26/2023 10:15:12 IPV 1 completed [facility]REBA NEUADIA [facility] 09/26/2023 10:15:12 MMR 1 completed [facility] 09/26/2023 10:15:12 MMR 1 completed [facility]EMMANUELLE [facility] 09/26/2023 10:15:12 Tdap 1 completed TREBA NEUSCHWANDER [facility] 09/26/2023 10:15:12 Pneumococcal conjugate PCV 13 2 completed TREBA NEUSCHWANDER null, [facility] 09/26/2023 10:15:12 varicella 1 completed TREBA NEUANNETTEWANDER null, [facility] 09/26/2023 10:15:12 varicella 1 completed TREBA NEUSCHWANDER null, [facility] 09/26/2023 10:15:12 Influenza, split virus, trivalent, preservative 2 completed [facility] 09/26/[facility]23 10:15:12 Influenza, split virus, trivalent, preservative 2 completed [facility]WAND[facility] 09/26/2023 10:15:12 Hep B, adolescent or pediatric 2 completed [facility]AND[facility] 09/26/2023 10:15:12 Hep B, adolescent or pediatric 2 completed [facility]WAND[facility] 09/26/2023 10:15:12 Hep B, adolescent or pediatric 1 completed [facility] 09/26/2023 10:15:12 Hep A, adult 1 completed [facility] 09/26/2023 10:15:12 Hib (PRP-T) 2 completed TREBA MERRYWANDER null, [facility] 09/26/2023 10:15:12 Hib (PRP-T) 2 completed TREBA NEUSCHWANDER null, [facility] 09/26/2023 10:15:12 DTaP 2 completed TREBA NEUSCHWANDER null, [facility] 09/26/2023 10:15:12 DTaP 2 completed TREBA NEUSCHWANDER null, [facility] 09/26/2023 10:15:12 Past Encounters Encounter ID Performer Location Encounter Start Date Encounter Closed Date Diagnosis/Indication Diagnosis SNOMED-CT Code Diagnosis ICD10 Code Diagnosis Note [id number] Feliciano Virk MD [facility] ([facility]) [address] [place] [address] 5 03/12/2024 14:19:43 03/12/2024 17:38:40 Normal in multigravida [id number] 47388 Z34.83 Gestation period, 34 weeks 21659881 Z3A.34 [id number] Feliciano Virk MD [facility] ([facility]) [address] [place] [address] 03/26/2024 13:41:32 03/27/2024 10:16:38 Normal in multigravida 6145191693 26882 Z34.83 Gestation period, 36 weeks 21226835 Z3A.36 [id number] Feliciano Virk MD [facility] ([facility]) [address] [place], [place] [address] 04/02/2024 14:15:03 04/10/2024 16:57:20 Normal in multigravida 4321884404 25695 Z34.83 Gestation period, 37 weeks 73370933 Z3A.37 [id number] Feliciano Virk MD [facility] ([facility]) [address] [place] [address] 5 04/09/2024 13:32:37 04/09/2024 14:22:08 Normal in multigravida 1637168854 08380 Z34.83 Gestation period, 38 weeks 95936153 Z3A.38 Health Concerns Section Related Observation LastModified by Organization Detai ls LastModified Time None Recorded Concern Status LastModified by Organization Details LastModified Time None Recorded Payers Encounter Date Sequence Insurance Name Policy Number Policy Henning Covered Member ID Henning Member ID Guarantor Name 04/09/2024 1 [place] [id number] Shantel Ridley [id number] 70 Shantel Ridley Notes Date Note Type Note Provider Name and Address Organization Details Recorded Time 04/09/2024 text/html jr ob routineRep orted bypatient.Associated Symptoms:no [...] drug or tobacco use Feliciano Virk MD [address] [place] [address], [phone] 04/09/2024 14:04:11 OBGyn Episode Ob Episode Information Episode Created Date Number of Fetuses Patient Bloodtype Patient rh Status Prepregnancy Weight lbs Domestic Partner Domestic Partner Phone Father Name Defect Repairer Glassware Status 09/26/19 24 1 A Positive Pipe OPEN Fetus Data First Name Last Name Admitted to NICU Weight (g) Sex Living Outcome Pediatric Complications Fetus ID Race Codes Race Delivery Type 5104 Problems Problem Notes Problem Name Start Date End Date Resolution Snomed Code Not e Normal in multigravida 10/23/2023 [id number] Dionna Calculation Initial Dionna Date Initial Exam [...] Weight in lbs Pre/Post Dialysis Refused Weight 149.862468305060 BP Diastolic BP Location Tested BP Systolic [...] Type Weight in lbs Pre/Post Dialysis Refused 150.220625957444 BP Diastolic BP Location Tested BP Systolic BP Type 64 110 sitting Fetus Heart Rate Present A 150 Present Fetus Movement Comments NOB, nausea/vomiting, headac he, cramping Flowsheet Date 11/21/2023 Kam Score Blood Edema Fundus Height Fundus Units Glucose Ketones Leukocytes Nitrite Labor Signs Protein Cervic Dilation Cervic Effacement Cervic Station neg none none Negative neg Type Weight in lbs Pre/Post Dialysis Refused 153.538993302271 BP Diastolic BP Location Tested BP Systolic [...] Type Weight in lbs Pre/Post Dialysis Refused 158.638220353102 BP Diastolic BP Location Tested BP Systolic [...] Type Weight in lbs Pre/Post Dialysis Refused 164.00571059897 BP Diastolic BP Location Tested BP Systolic [...] Type Weight in lbs Pre/Post Dialysis Refused 170.491956979116 BP Diastolic BP Location Tested BP Systolic [...] Weight in lbs Pre/Post Dialysis Refused Weight 169.460600678669 BP Diastolic BP Location Tested BP Systolic [...] Weight in lbs Pre/Post Dialysis Refused Weight 174.397845071093 BP Diastolic BP Location Tested BP Systolic BP Type 74 116 Fetus Heart Rate Present A 136 Present Fetus Movement A Yes Comments Rt. hip pain, swelling in fe et, ctx, vaginal pressure, heartburn Flowsheet Date 03/26/2024 Kam Score Blood Edema Fundus Height Fundus Units Glucose Ketones Leukocytes Nitrite Labor Signs Protein Cervic Dilation Cervic Effacement Cervic Station 36 cm none trace Vernon Crain trace 0cm -4 Type Weight in lbs Pre/Post Dialysis Refused Weight 173.412831452196 BP Diastolic BP Location Tested BP Systolic [...] Cervic Station 37 cm none none Negative Vernon Crain neg Type Weight in lbs Pre/Post Dialysis Refused Weight 176.179951400136 BP Diastolic BP Location Tested BP Systolic BP Type 64 100 sitting Fetus Heart Rate Present A 142 Present Fetus Movement A Yes Comments cramping, vaginal discharge/ pressure, nausea, dizziness, pelvic,hip and back pain, heartburn. Flowsheet Date 04/09/2024 Kam Score Blood Edema Fundus Height Fundus Units Glucose Ketones Leukocytes Nitrite Labor Signs Protein Cervic Dilation Cervic Effacement Cervic Station none none Negative Vernon Crain neg Type Weight in lbs Pre/Post Dialysis Refused Weight 179.387366455365 BP Diastolic BP Location Tested BP Systolic [...] Type Weight in lbs Pre/Post Dialysis Refused 179.360247390276 BP Diastolic BP Location Tested BP Systolic [...] Estim ated Date of Delivery false Thalassemia (Belarusian, [place] Citizen, Mediterranean, Or Background): MCV < 80 false Neural Tube Defect (Meningomyelocele, Spina Bifi da, Or Anencephaly) false Congenital Heart Defect false Down Syndrome false Augie-Sachs (eg, Caodaism, Cajun, Stateless-Warrick) f alse Syed Disease false Sickle Cell [...]
--- OUTSIDE RECORDS SUMMARY | 2024-04-20 07:35 | XMS_ITS | Continuity of Care Document ---
Author Organization [facility] Benjamin, Jun, [facility] ([facility]) Address [address] [place] [address] Assessment No assessment recorded. Plan of Treatment [...] ster No observ ation record ed. [email or web address] [facility] ([facility]) [address] [place], [address], 12/07/2023 07:18:19 12/25/19 24 12/05/2023 US, obste tric, 2nd trime ster No observ ation record ed. [facility] [address] [place], [address], 12/26/2023 10:57:48 Result Notes None recorded. Problems Name Problem SNOMED Code Status Onset Date Resolution Date Notes Provider Name and Address Organization Details Recorded Time 34840159 Active 2023 [facility] Normal in multigravid a 7021547710634 06 Active 2023 TENELIZABETH TIMMONS [facility], L.LRolandaCRolanda 4 17:15:25 Normal in multigravid a 8849079807675 06 Active 2023 TENELIZABETH TIMMONS josette [facility], LRolandaLMat 4 17:15:25 Problem Notes None recorded. Procedures Surgical History Date Name Laterality Status Provider Name and Address Organization Details Recorded Time Dilation and Curettage [facility] 09/26/2023 10:18:08 tonsilectomy/a denoids [facility] LRolandaLMat 09/26/2023 10:18:19 Imaging Results None recorded. Procedure [...] Updated DateTime 5 162.56 cm 30.7 kg/m2 28379.0 3423 g 99 % 99 % 75 /min 18 /min 98.4 [degF] 120 mm[Hg] 78 mm[Hg] KATIE TAPIA [facility], LRolandaLMat 5 15:52:21 Social History Question Answer Notes LastModified by Organizat ion Details LastModified Time Tobacco Smoking Status Never Smoker KATIE finch [facility], FaraLMat 09/26/2023 10:17:34 What Is Your Level Of [...] Recorded Time IPV 2 completed [facility] 10:15:12 IPV 2 completed [facility]23 10:15:12 IPV 1 completed TREBA KADE [facility]ch [facility]/26/2023 10:15:12 MMR 1 completed [facility]2023 10:15:12 MMR 1 completed [facility] 09/26/2023 10:15:12 Tdap 1 completed [facility] 09/26/2023 10:15:12 Pneumococcal conjugate PCV 13 2 completed TREBA NEUSCHWANDER null, [facility] 09/26/2023 10:15:12 varicella 1 completed TREBA NEUANNETTEWANDER null, [facility] 09/26/2023 10:15:12 varicella 1 completed TREBA NEUSCHWANDER null, [facility] 09/26/2023 10:15:12 Influenza, split virus, trivalent, preservative 2 completed TRE[facility]WANDER [facility] 09/26/2023 10:15:12 Influenza, split virus, trivalent, preservative 2 completed TREBA [facility]ANNETTEWANDER [facility] 09/26/2023 10:15:12 Hep B, adolescent or pediatric 2 completed TREBA NEUANNETTEWANDER null, [facility] 09/26/2023 10:15:12 Hep B, adolescent or pediatric 2 completed TREBA [facility]NETTEWANDER [facility] 09/26/2023 10:15:12 Hep B, adolescent or pediatric 1 completed TREBA [facility]NETTEWANDER [facility] 09/26/2023 10:15:12 Hep A, adult 1 completed [facility]WAND[facility] 09/26/2023 10:15:12 Hib (PRP-T) 2 completed TREBA MERRYWANDER [facility] 09/26/2023 10:15:12 Hib (PRP-T) 2 completed TREBA NEUSCHWANDER null, [facility] 09/26/2023 10:15:12 DTaP 2 completed TREBA NEUSCHWANDER null, [facility] 09/26/2023 10:15:12 DTaP 2 completed TREBA NEUSCHWANDER null, [facility] 09/26/2023 10:15:12 Past Encounters Encounter ID Performer Location Encounter Start Date Encounter Closed Date Diagnosis/Indication Diagnosis SNOMED-CT Code Diagnosis ICD10 Code Diagnosis Note [id number] Feliciano Virk MD [facility] ([facility]) [address] [place] [address] 5 03/26/2024 13:41:32 03/27/2024 10:16:38 Normal in multigravida 9831173233 94579 Z34.83 Gestation period, 36 weeks 68206245 Z3A.36 [id number] Feliciano Virk MD [facility] ([facility]) [address] [place] [address] 5 04/02/2024 14:15:03 04/10/2024 16:57:20 Normal in multigravida 3977257188 57547 Z34.83 Gestation period, 37 weeks 80370524 Z3A.37 [id number] Feliciano Virk MD [facility] ([facility]) [address] [place], [place] [address] 04/09/2024 13:32:37 04/09/2024 14:22:08 Normal in multigravida 7935527442 08320 Z34.83 Gestation period, 38 weeks 74375229 Z3A.38 [id number] Feliciano Virk MD [facility] ([facility]) [address] [place] [address] 5 04/15/2024 15:22:06 04/15/2024 16:53:01 Normal in multigravida 4078039923 43860 Z34.83 Gestation period, 39 weeks 88718431 Z3A.39 Health Concerns Section Related Observation LastModified by Organization Detai ls LastModified Time None Recorded Concern Status LastModified by Organization Details LastModified Time None Recorded Payers Encounter Date Sequence Insurance Name Policy Number Policy Henning Covered Member ID Henning Member ID Guarantor Name 04/15/2024 1 [place] [id number] Shantel Ridley [id number] Shantel Ridley Notes Date Note Type Note Provider Name and Address Organization Details Recorded Time 04/15/2024 text/html jr ob routineRep orted bypatient.Associated [...] drug or tobacco use Feliciano Virk MD [address] [place] [address], [address] 04/15/2024 16:09:59 OBGyn Episode Ob Episode Information Episode Created Date Number of Fetuses Patient Bloodtype Patient rh Status Prepregnancy Weight lbs Domestic Partner Domestic Partner Phone Father Name Marine Fire Fighter Status 09/26/19 24 1 A Positive Pipe OPEN Fetus Data First Name Last Name Admitted to NICU Weight (g) Sex Living Outcome Pediatric Complications Fetus ID Race Codes Race Delivery Type 5104 Problems Problem Notes Problem Name Start Date End Date Resolution Snomed Code Not e Normal in multigravida 10/23/2023 [id number] Dionna Calculation Initial Dionna Date Initial Exam [...] Weight in lbs Pre/Post Dialysis Refused Weight 149.502237898770 BP Diastolic BP Location Tested BP Systolic [...] Type Weight in lbs Pre/Post Dialysis Refused 150.478680590638 BP Diastolic BP Location Tested BP Systolic BP Type 64 110 sitting Fetus Heart Rate Present A 150 Present Fetus Movement Comments NOB, nausea/vomiting, headac he, cramping Flowsheet Date 11/21/2023 Kam Score Blood Edema Fundus Height Fundus Units Glucose Ketones Leukocytes Nitrite Labor Signs Protein Cervic Dilation Cervic Effacement Cervic Station neg none none Negative neg Type Weight in lbs Pre/Post Dialysis Refused 153.864996650637 BP Diastolic BP Location Tested BP Systolic [...] Type Weight in lbs Pre/Post Dialysis Refused 158.446614562525 BP Diastolic BP Location Tested BP Systolic [...] Type Weight in lbs Pre/Post Dialysis Refused 164.01687911621 BP Diastolic BP Location Tested BP Systolic [...] Type Weight in lbs Pre/Post Dialysis Refused 170.159615941264 BP Diastolic BP Location Tested BP Systolic [...] Weight in lbs Pre/Post Dialysis Refused Weight 169.508504367721 BP Diastolic BP Location Tested BP Systolic [...] Effacement Cervic Station 35 cm none trace Fillmore Crain neg Type Weight in lbs Pre/Post Dialysis Refused Weight 174.053662234158 BP Diastolic BP Location Tested BP Systolic BP Type 74 116 Fetus Heart Rate Present A 136 Present Fetus Movement A Yes Comments Rt. hip pain, swelling in fe et, ctx, vaginal pressure, heartburn Flowsheet Date 03/26/2024 Kam Score Blood Edema Fundus Height Fundus Units Glucose Ketones Leukocytes Nitrite Labor Signs Protein Cervic Dilation Cervic Effacement Cervic Station 36 cm none trace Fillmore Crain trace 0cm -4 Type Weight in lbs Pre/Post Dialysis Refused Weight 173.916577054467 BP Diastolic BP Location Tested BP Systolic [...] Cervic Station 37 cm none none Negative Fillmore Crain neg Type Weight in lbs Pre/Post Dialysis Refused Weight 176.439631133783 BP Diastolic BP Location Tested BP Systolic [...] Weight in lbs Pre/Post Dialysis Refused Weight 179.509646017762 BP Diastolic BP Location Tested BP Systolic [...] Type Weight in lbs Pre/Post Dialysis Refused 179.135778198777 BP Diastolic BP Location Tested BP Systolic [...] Estim ated Date of Delivery false Thalassemia (Polish, Beninese, Mediterranean, Or Background): MCV < 80 false Neural Tube Defect (Meningomyelocele, Spina Bifi da, Or Anencephaly) false Congenital Heart Defect false Down Syndrome false Augie-Sachs (eg, Jain, Cajun, Nigerien-Quincy) f alse Syed Disease false Sickle Cell Disease Or Trait () false Hemophilia Or Other Blood Disorders false Muscular Dystrophy false Cystic Fibrosis false [place]'s Chorea false Intellectual Disability/Autism true n ephew [...]
--- OUTSIDE RECORDS SUMMARY | 2024-04-20 07:36 | XMS_ITS | Continuity of Care Document ---
Author Organization [facility] Benjamin, Jun, [facility] ([facility]) Address [address] [place] [address] Assessment No assessment recorded. Plan of Treatment [...] No observ ation record ed. [email or web address] [facility] ([facility]) [address] [place], [address], 12/07/2023 07:18:19 12/25/19 24 12/05/2023 US, obste tric, 2nd trime ster No observ ation record ed. [email or web address] [address] [place], [address], 12/26/2023 10:57:48 Result Notes None recorded. Problems Name Problem SNOMED Code Status Onset Date Resolution Date Notes Provider Name and Address Organization Details Recorded Time 35368227 Active 2023 [facility] Normal in multigravid a 6775822648677 06 Active 2023 TENELIZABETH TIMMONS [facility], L.LMat 4 17:15:25 Normal in multigravid a 9083805412495 06 Active 2023 TEN TIMMONS josette [facility], LRolandaLMat 4 17:15:25 Problem Notes None recorded. Procedures Surgical History Date Name Laterality Status Provider Name and Address Organization Details Recorded Time Dilation and Curettage completed [facility] 09/26/2023 10:18:08 tonsilectomy/a denoids completed [facility], LRolandaLaMt 09/26/2023 10:18:19 Imaging Results None recorded. Procedure [...] Updated DateTime 5 162.56 cm 30.3 kg/m2 12544.6 6 g 99 % 99 % 64 /min 18 /min 97.7 [degF] 100 mm[Hg] 64 mm[Hg] KATIE TAPIA [facility], LRolandaL.CRolanda 5 14:53:23 Date Recorded Body height Body mass index (BMI) Body weight Oxygen saturation Oxygen saturation in Arterial blood by Pulse oximetry Heart rate Respiratory rate Body temperature Systolic blood pressure Diastolic blood pressure Provider Name and Address Organization Details Last Updated DateTime 5 162.56 cm 30.7 kg/m2 38794.0 3 g 98 % 98 % 72 /min 18 /min 98.1 [degF] 120 mm[Hg] 68 mm[Hg] KATIE FROST [facility] 5 13:44:46 Social History Question Answer Notes LastModified by Organizat ion Details LastModified Time Tobacco Smoking Status Never Smoker KATIE finch [facility] 09/26/2023 10:17:34 What Is Your Level Of [...] Recorded Time IPV 2 completed KATIE finch [facility] 09/26/2023 10:15:12 IPV 2 completed KATIE finch [facility] 09/26/2023 10:15:12 IPV 1 completed TREBA NEUSCHWANDER [facility] 09/26/2023 10:15:12 MMR 1 completed TREBA NEUANNETTEWANDER [facility] 09/26/2023 10:15:12 MMR 1 completed TREBA NEULAVONNENDER [facility] 09/26/2023 10:15:12 Tdap 1 completed TREBA NEUANNETTEWANDER [facility] 09/26/2023 10:15:12 Pneumococcal conjugate PCV 13 2 completed [facility] 09/26/2023 10:15:12 varicella 1 completed TREBA BISHNUER [facility] 09/26/2023 10:15:12 varicella 1 completed TREBA NEUANNETTEWANDER [facility] 09/26/2023 10:15:12 Influenza, split virus, trivalent, preservative 2 completed TREBA [facility]ANNETTEWANDER [facility] 09/26/2023 10:15:12 Influenza, split virus, trivalent, preservative 2 completed TREBA NEUANNETTEWANDER [facility] 09/26/2023 10:15:12 Hep B, adolescent or pediatric 2 completed TREBA NEUANNETTEWANDER [facility] 09/26/2023 10:15:12 Hep B, adolescent or pediatric 2 completed TREBA MERRYWANDER [facility] 09/26/2023 10:15:12 Hep B, adolescent or pediatric 1 completed TREBA NEUSCHWANDER null, [facility] 09/26/2023 10:15:12 Hep A, adult 1 completed TREBA NEUSCHWANDER null, [facility] 09/26/2023 10:15:12 Hib (PRP-T) 2 completed TREBA NEUSCHWANDER null, [facility] 09/26/2023 10:15:12 Hib (PRP-T) 2 completed TREBA NEUSCHWANDER null, [facility] 09/26/2023 10:15:12 DTaP 2 completed TREBA NEUSCHWANDER null, [facility] 09/26/2023 10:15:12 DTaP 2 completed TREBA NEUSCHWANDER null, [facility] 09/26/2023 10:15:12 Past Encounters Encounter ID Performer Location Encounter Start Date Encounter Closed Date Diagnosis/Indication Diagnosis SNOMED-CT Code Diagnosis ICD10 Code Diagnosis Note [id number] Feliciano Virk MD [facility] ([facility]) [address] [place] [address] 5 03/12/2024 14:19:43 03/12/2024 17:38:40 Normal in multigravida 7616660870 42463 Z34.83 Gestation period, 34 weeks 45311176 Z3A.34 [id number] Feliciano Virk MD [facility] ([facility]) [address] [place], [place] [address] 03/26/2024 13:41:32 03/27/2024 10:16:38 Normal in multigravida 5265145484 38855 Z34.83 Gestation period, 36 weeks 99455274 Z3A.36 [id number] Feliciano Virk MD [facility] ([facility]) [address] [place], [place] [address] 04/02/2024 14:15:03 04/10/2024 16:57:20 Normal in multigravida 4833130856 75498 Z34.83 Gestation period, 37 weeks 09440507 Z3A.37 Health Concerns Section Related Observation LastModified by Organization Detai ls LastModified Time None Recorded Concern Status LastModified by Organization Details LastModified Time None Recorded Payers Encounter Date Sequence Insurance Name Policy Number Policy Henning Covered Member ID Henning Member ID Guarantor Name 04/02/2024 1 [id number] [id number] Shantel Ridley [id number] Shantel Ridley Notes Date Note Type Note Provider Name and Address Organization Details Recorded Time 04/02/2024 text/html ob routineRep orted bypatient.Associated Symptoms:no [...] drug or tobacco use Feliciano Virk MD [address] [place] [address], [phone], [facility] 04/10/2024 12:24:42 04/09/2024 text/html ob routineRep orted [...] drug or tobacco use Feliciano Virk MD [address] [place], [address], [facility] 04/09/2024 14:04:11 OBGyn Episode Ob Episode Information Episode Created Date Number of Fetuses Patient Bloodtype Patient rh Status Prepregnancy Weight lbs Domestic Partner Domestic Partner Phone Father Name Fuel Cell Engineer Status 09/26/19 24 1 A Positive Pipe OPEN Fetus Data First Name Last Name Admitted to NICU Weight (g) Sex Living Outcome Pediatric Complications Fetus ID Race Codes Race Delivery Type 5104 Problems Problem Notes Problem Name Start Date End Date Resolution Snomed Code Not e Normal in multigravida 10/23/2023 [id number] Dionna Calculation Initial Dionna Date Initial Exam [...] Weight in lbs Pre/Post Dialysis Refused Weight 149.213638179003 BP Diastolic BP Location Tested BP Systolic [...] Type Weight in lbs Pre/Post Dialysis Refused 150.972881264242 BP Diastolic BP Location Tested BP Systolic BP Type 64 110 sitting Fetus Heart Rate Present A 150 Present Fetus Movement Comments NOB, nausea/vomiting, headac he, cramping Flowsheet Date 11/21/2023 Kam Score Blood Edema Fundus Height Fundus Units Glucose Ketones Leukocytes Nitrite Labor Signs Protein Cervic Dilation Cervic Effacement Cervic Station neg none none Negative neg Type Weight in lbs Pre/Post Dialysis Refused 153.754345839113 BP Diastolic BP Location Tested BP Systolic [...] Type Weight in lbs Pre/Post Dialysis Refused 158.932724448395 BP Diastolic BP Location Tested BP Systolic [...] Type Weight in lbs Pre/Post Dialysis Refused 164.02273738554 BP Diastolic BP Location Tested BP Systolic [...] Type Weight in lbs Pre/Post Dialysis Refused 170.490074525511 BP Diastolic BP Location Tested BP Systolic [...] Weight in lbs Pre/Post Dialysis Refused Weight 169.981905695823 BP Diastolic BP Location Tested BP Systolic [...] Effacement Cervic Station 35 cm none trace Traphill Crain neg Type Weight in lbs Pre/Post Dialysis Refused Weight 174.814701561092 BP Diastolic BP Location Tested BP Systolic BP Type 74 116 Fetus Heart Rate Present A 136 Present Fetus Movement A Yes Comments Rt. hip pain, swelling in fe et, ctx, vaginal pressure, heartburn Flowsheet Date 03/26/2024 Kam Score Blood Edema Fundus Height Fundus Units Glucose Ketones Leukocytes Nitrite Labor Signs Protein Cervic Dilation Cervic Effacement Cervic Station 36 cm none trace Dilshad Crain trace 0cm -4 Type Weight in lbs Pre/Post Dialysis Refused Weight 173.697921610038 BP Diastolic BP Location Tested BP Systolic [...] Weight in lbs Pre/Post Dialysis Refused Weight 176.527893813264 BP Diastolic BP Location Tested BP Systolic BP Type 64 100 sitting Fetus Heart Rate Present A 142 Present Fetus Movement A Yes Comments cramping, vaginal discharge/ pressure, nausea, dizziness, pelvic,hip and back pain, heartburn. Flowsheet Date 04/09/2024 Kam Score Blood Edema Fundus Height Fundus Units Glucose Ketones Leukocytes Nitrite Labor Signs Protein Cervic Dilation Cervic Effacement Cervic Station none none Negative Traphill Crain neg Type Weight in lbs Pre/Post Dialysis Refused Weight 179.030810000606 BP Diastolic BP Location Tested BP Systolic [...] Type Weight in lbs Pre/Post Dialysis Refused 179.293593855661 BP Diastolic BP Location Tested BP Systolic [...] Estim ated Date of Delivery false Thalassemia (Bangladeshi, Cymro, Mediterranean, Or Background): MCV < 80 false Neural Tube Defect (Meningomyelocele, Spina Bifi da, Or Anencephaly) false Congenital Heart Defect false Down Syndrome false Augie-Sachs (eg, Jehovah'S Witness, Cajun, Polish-Cypriot) f alse Syed Disease false Sickle Cell Disease Or Trait () false Hemophilia Or Other Blood Disorders false Muscular Dystrophy false Cystic Fibrosis false [place]'s Chorea false Intellectual Disability/Autism true n ephew [...]
--- NOTE | 2024-04-20 08:15 | P.DS_ITS ---
Discharge Providers [facility] Date of Admission: 04/18/24 07:30 Date of Discharge: 04/20/24 Attending Provider at Admission: Feliciano Virk MD Attending Provider at Discharge: Feliciano Virk MD Primary Care Provider: Jessy Fischer MD Diagnoses at Discharge Discharge Diagnosis (1) Vacuum-assisted vaginal delivery: Status: Acute (2) 39 weeks gestation of : Status: Acute Reason for Visit Reason for Visit: Poss. SROM Hospital Course Hospital Course The patient presented to the hospital with rupture membranes. She was given Cytotec. An epidural was placed. She progressed to complete, and made some changes but was pushing us to separate occasions as well as laboring down. Due to lack of progress over the last hour of her pushing, we elected to use a vacuum to assist in delivery. The delivery is unremarkable. The baby was OP. She had a second-degree tear which was repaired without difficulty. Her progress has been also unremarkable. Her bleeding was within normal limits. Her pain was under control. She is breast-feeding well. There were no concerns. Information Peripartum Data: Delivery Method: Vaginal Physical Exam Narrative: The patient is alert. She appears comfortable. Her heart has a regular rate and rhythm with no murmurs appreciated. Lungs are clear to auscultation bilaterally. Her fundus is firm and below the umbilicus. Urinary Catheter Management: Carson Latex: Cath Placed During This Visit: yes, but has since been removed by the nurse Reason for Continuing Indwelling Catheter: Decision to DC Catheter Urinary Catheter Date of Insertion: 04/18/24 Urinary Catheter Time of Insertion: 11:35 Date Urinary Catheter Removed: 04/18/24 Time Urinary Catheter Discontinued: 18:10 History History History 2 Term 0 0 Miscarriages/Ectopic 1 Living Children 0 Discharge Data Studies Completed and Pending Laboratory Results WBC 14.73 10^3/uL (3.29-11.43) H 04/19/24 13:10 RBC 3.56 10^6/uL (3.85-5.65) L 04/19/24 13:10 Hgb 10.50 g/dL (11.27-16.99) L 04/19/24 13:10 Hct 32.5 % (36-47) L 04/19/24 13:10 MCV 91.3 fl (85-98) 04/19/24 13:10 MCH 29.5 pg (27-33) 04/19/24 13:10 MCHC 32.3 g/dL (30-55) 04/19/24 13:10 RDW 13.2 % (12.1-15.1) 04/19/24 13:10 Plt Count 202 10^3/cmm (157-399) 04/19/24 13:10 MPV 9.1 fL (7.4-10.4) 04/19/24 13:10 Neut % (Auto) 64.8 % 04/18/24 07:20 Lymph % (Auto) 22.0 % 04/18/24 07:20 Otero % (Auto) 10.6 % 04/18/24 07:20 Eos % (Auto) 1.7 % 04/18/24 07:20 Baso % (Auto) 0.3 % 04/18/24 07:20 Neut # (Auto) 5.76 10^3/uL (1.8-7.7) 04/18/24 07:20 Lymph # (Auto) 2.0 10^3/uL (0.8-4.8) 04/18/24 07:20 Otero # (Auto) 0.9 10^3/uL (0.2-0.9) 04/18/24 07:20 Eos # (Auto) 0.2 10^3/uL (0.0-0.8) 04/18/24 07:20 Baso # (Auto) 0.0 10^3/uL (0.0-0.1) 04/18/24 07:20 Nucleated RBC % (auto) 0 % 04/18/24 07:20 Nucleated RBCs # 0.0 /100WBC 04/18/24 07:20 Fluid pH (paper) Positive H 04/18/24 06:20 Blood Type A Positive 04/18/24 07:20 Rho(D) Type Rh positive 04/18/24 07:20 Antibody Screen Negative 04/18/24 07:20 Vitals Last Vital Signs Temp 98.0 F 04/20/24 04:17 Pulse 73 04/20/24 04:17 Resp 16 04/20/24 04:17 BP 101/65 04/20/24 04:17 Pulse Ox 99 04/20/24 04:17 O2 Del Method Room Air 04/20/24 04:17 Results Labs OB ([facility]): Blood Type A Positive 04/18/24 Antibody Screen Negative 04/18/24 Hct 32.5 % (36-47) L 04/19/24 Hgb 10.50 g/dL (11.27-16.99) L 04/19/24 Rho(D) Type Rh positive 04/18/24 Plt Count 202 10^3/cmm (157-399) 04/19/24 Discharge Plan Discharge Patient Disposition: Home Condition: Stable Prescriptions: New ibuprofen 800 mg Tablet 800 mg PO TID Qty: 45 0RF Continued 1 tab PO DAILY Discharge Orders: Discharge Order (Routine); Ordered 04/20/24 Ordered By: Feliciano Virk Referrals: Feliciano Virk MD [Physician] - 6 Weeks Discharge Diet: Usual diet Discharge Activity: Limit activity as instructed Patient Instructions: Opioid Safety Discharge Attestations [facility] Time Spent in Discharge Care*: less than 30 min Coding Level of Care Code Acute Code for Chg Fwd Diagnoses Vacuum-assisted vaginal delivery Z37.9 39 weeks gestation of Z3A.39
[2024-04-20] MEDS: ibuprofen 800 mg tablet PO (09:29)
[2024-04-20] MEDS: PRENATAL VIT NO.130/IRON/FOLIC 1 EACH TABLET PO (09:29)
[2024-04-20] MEDS: docusate sodium 100 mg Capsule PO (09:29)
[2024-04-20 09:30] VITALS: BP 112/78; PULSE 99; RESP 18; TEMP 36.9; O2SAT 99
== END 2024-04-20 09:50 | disposition home or self-care (01) | DRG 807 ==
LOC: OPOB 04-19 11:47 → OBGYN 04-20 07:32
PROVIDERS: Admitting Provider Family Medicine; PCP Pediatrics Adolescent Medicine; Visit Provider Family Medicine
DX: O69.81X0 Labor and delivery complicated by cord around neck, without compression, not applicable or unspecified (principal); Z37.0 Single live birth; O70.1 Second degree perineal laceration during delivery; Z3A.39 39 weeks gestation of pregnancy
CPT/HCPCS: 36415; 51702; 59025; 59409; 83986; 85025; 85027; 86850; 86900; 96374; 99211; J2590; J2795; J3010; J7030; J7121